=== PATIENT | female | born 1985 | race Caucasian/White ===

== ENCOUNTER → 2016-05-20 | Outpatient (CLI) | payer OTHER ==
[2016-05-22 17:40] LABS: SOURCE VAGINA (())
[2016-05-22 18:25] LABS: C TRACHOMATIS RNA Negative (Negative); N GONORRHOEAE RNA Negative (Negative)
== END ==
LOC: MOB LAB 09:39
PROVIDERS: ATTEND Nurse Practitioner Family
DX: Z11.3 Encounter for screening for infections with a predominantly sexual mode of transmission (principal); N76.0 Acute vaginitis
CPT/HCPCS: 87491; 87591